=== PATIENT | female | born 1965 | race Caucasian/White ===

== ENCOUNTER 2016-06-30 12:39 | Emergency (ER) | payer OTHER ==
[2016-06-30 13:39] LABS: HEMOGLOBIN 13.8 gm/dl (12.3-15.3); RED BLOOD COUNT 4.39 M/UL (4.00-5.10); WHITE BLOOD COUNT 10.4 K/UL (4.5-11.0)
[2016-06-30 13:58] LABS: BUN/CREATININE RATIO 13 (0-10)
[2016-07-12] MEDS ORDERED: NORCO 5-325 TA1 EACH PO (12:24)
[2016-07-12] MEDS ORDERED: PERCOCET 5-3251 EACH PO (16:46)
[2016-07-12] MEDS ORDERED: DOSS PO (16:47)
[2016-07-12] MEDS ORDERED: PHENERGAN 12.12.5 M1 PO (16:47)
== END 2016-06-30 16:28 | disposition home or self-care (01) ==
LOC: ER1 12:39
PROVIDERS: Physician Assistant Medical
DX: S62.611A Displaced fracture of proximal phalanx of left index finger, initial encounter for closed fracture (principal); S62.645A Nondisplaced fracture of proximal phalanx of left ring finger, initial encounter for closed fracture; F17.210 Nicotine dependence, cigarettes, uncomplicated; W18.39XA Other fall on same level, initial encounter; Y92.009 Unspecified place in unspecified non-institutional (private) residence as the place of occurrence of the external cause
CPT/HCPCS: 36415; 71020; 73110; 73130; 80053; 81001; 82150; 83690; 84484; 84703; 85025; 99284; J7050; Q9962

== ENCOUNTER → 2016-07-12 | Day surgery (SDC) | payer OTHER ==
[~2016-07-12] MED LIST: DOSS PO; NORCO 5-325 TA1 EACH PO; PERCOCET 5-3251 EACH PO; PHENERGAN 12.12.5 M1 PO
== END | disposition home or self-care (01) ==
LOC: OR 11:07
PROVIDERS: Orthopaedic Surgery
PROC: 0PSV04Z Reposition Left Finger Phalanx with Internal Fixation Device, Open Approach (ICD-10-PCS; principal; 2016-07-12 12:45)
DX: S62.615A Displaced fracture of proximal phalanx of left ring finger, initial encounter for closed fracture (principal); S62.617A Displaced fracture of proximal phalanx of left little finger, initial encounter for closed fracture; M19.90 Unspecified osteoarthritis, unspecified site; F17.210 Nicotine dependence, cigarettes, uncomplicated; Z90.49 Acquired absence of other specified parts of digestive tract; Z90.710 Acquired absence of both cervix and uterus; Z87.01 Personal history of pneumonia (recurrent); Z86.73 Personal history of transient ischemic attack (TIA), and cerebral infarction without residual deficits; Z79.899 Other long term (current) drug therapy; Z82.49 Family history of ischemic heart disease and other diseases of the circulatory system; Z83.3 Family history of diabetes mellitus; Z82.5 Family history of asthma and other chronic lower respiratory diseases; W19.XXXA Unspecified fall, initial encounter
CPT/HCPCS: 73140; 76000; C1763; J0690; J3010; J7120

== ENCOUNTER 2021-02-02 13:11 | Emergency (ER) | payer OTHER | END 2021-02-02 16:05 | disposition home or self-care (01) | LOC: ER1 13:11 | DX: F41.9 Anxiety disorder, unspecified (principal); F19.90 Other psychoactive substance use, unspecified, uncomplicated; Z86.19 Personal history of other infectious and parasitic diseases; F17.200 Nicotine dependence, unspecified, uncomplicated | CPT/HCPCS: 99283; Q0177 ==

== ENCOUNTER 2022-01-17 04:29 | Emergency (ER) | payer OTHER ==
[2022-01-17 04:55] LABS: HEMOGLOBIN 12.2 gm/dl (12.3-15.3); RED BLOOD COUNT 3.7 M/UL (4.00-5.10); WHITE BLOOD COUNT 9.9 K/UL (4.5-11.0)
[2022-01-17 05:32] LABS: BUN/CREATININE RATIO 22 (0-10)
== END 2022-01-17 15:20 | disposition home or self-care (01) ==
LOC: ER1 04:29
PROVIDERS: Family Medicine; Physician Assistant
DX: T43.591A Poisoning by other antipsychotics and neuroleptics, accidental (unintentional), initial encounter (principal); F15.10 Other stimulant abuse, uncomplicated; J18.9 Pneumonia, unspecified organism; Z20.822 Contact with and (suspected) exposure to COVID-19
CPT/HCPCS: 36600; 70450; 71045; 80053; 80307; 81001; 82009; 82550; 82553; 82803; 83605; 83690; 83735; 83880; 84439; 84443; 84484; 85025; 85652; 85730; 86140; 87086; 93005; 96374; 99285; G0480; J0696; U0002